=== PATIENT | female | born 1960 | race Caucasian/White ===

== ENCOUNTER 2018-04-20 09:28 | Emergency (ER) | payer BC, OTHER ==
[2018-04-20 10:31] VITALS: BP 120/98
[2018-04-20] MEDS ORDERED: Ketorolac INJ* 60 MG/2 ML VIAL IM ONE (11:29)
--- NOTE | 2018-04-20 11:40 | UC ---
Back Pain HPI - HPI Summary HPI Summary: 57-year-old woman comes in with a chief complaint of low back pain. Started 2 days ago while at work while she was twisting turning bending and lifting. Pain is in the low back and goes into the left buttock. It's worse with twisting turning or bending. No complaint of any weakness or numbness or difficulty controlling urine or bowels. Ibuprofen does help some with the pain. - History of Current Complaint Chief Complaint: UCBackPain Stated Complaint: WC BACK PAIN Time Seen by Provider: 04/20/18 11:20 Pain Intensity: 10 - Allergies/Home Medications Allergies/Adverse Reactions: Allergies Allergy/AdvReac Type Severity Reaction Status Date / Time No Known Allergies Allergy Verified 04/20/18 10:25 Home Medications: Home Medications Ibuprofen TAB* [Advil TAB*] 400 mg PO Q6H PRN 04/20/18 [History Confirmed ] PMH/Surg Hx/FS Hx/Imm Hx Previously Healthy: Yes - Surgical History Surgical History: Yes Surgery Procedure, Year, and Place: c/s x2 - Family History Known Family History: Positive: Non-Contributory - Social History Alcohol Use: Rare Substance Use Type: None Smoking Status (MU): Never Smoked Tobacco - Immunization History Most Recent Tetanus Shot: UTD Review of Systems All Other Systems Reviewed And Are Negative: Yes Constitutional: Positive: Negative Skin: Positive: Negative Eyes: Positive: Negative ENT: Positive: Negative Respiratory: Positive: Negative Cardiovascular: Positive: Negative Gastrointestinal: Positive: Negative Genitourinary: Positive: Negative Motor: Positive: Negative Neurovascular: Positive: Negative Musculoskeletal: Positive: Other: - SEE HPI Neurological: Positive: Negative Psychological: Positive: Negative Is Patient Immunocompromised?: No Physical Exam Triage Information Reviewed: Yes Appearance: Well-Appearing, Well-Nourished, Pain Distress - MILD AT REST Vital Signs: Initial Vital Signs Temp 99.9 F 04/20/18 10:26 Pulse 100 04/20/18 10:26 Resp 20 04/20/18 10:26 BP 120/98 04/20/18 10:26 Pulse Ox 100 04/20/18 10:26 Vital Signs Reviewed: Yes Eye Exam: Normal Eyes: Positive: Conjunctiva Clear Neck exam: Normal Neck: Positive: Supple Respiratory: Positive: No respiratory distress Musculoskeletal: Positive: Other: - Patient is tender to palpation in the lower lumbar area and into the left buttock and the sciatic distribution. Patient has full range of motion full-strength in the legs. No sensation deficits. Neurological Exam: Normal Neurological: Positive: Alert, Muscle Tone Normal Psychological Exam: Normal Psychological: Positive: Normal Response To Family, Age Appropriate Behavior Skin Exam: Normal Back Pain Course/Dx - Differential Dx/Diagnosis Provider Diagnosis: Low back pain Discharge - Sign-Out/Discharge Documenting (check all that apply): Patient Departure All imaging exams completed and their final reports reviewed: No Studies - Discharge Plan Condition: Stable Disposition: HOME Prescriptions: Cyclobenzaprine TAB* [Flexeril 10 MG TAB*] 10 mg PO TID PRN #15 tab MDD 3 PRN Reason: Pain traMADol TAB* [Ultram*] 50 mg PO Q6HR PRN #20 tab MDD 4 PRN Reason: Pain Patient Education Materials: Acute Low Back Pain (ED), Lower Back Exercises (ED ) Referrals: Jacquelyn Hallman MD [Primary Care Provider] - Additional Instructions: FOLLOW UP WITH YOUR DOCTOR IF NOT COMPLETELY IMPROVED. TAKE IBUPROFEN 600MG EVERY 6 HOURS NEEDED. GET RECHECKED FOR ANY WORSENING OF YOUR CONDITION; PAIN, WEAKNESS, NUMBNESS, DIFFICULTY CONTROLLING BOWEL OR BLADDER OR QUESTIONS OR CONCERNS. - Billing Disposition and Condition Condition: STABLE Disposition: Home
== END 2018-04-20 12:05 | disposition home or self-care (01) ==
LOC: UCEAST 09:28
DX: M54.5 Low back pain (principal)
CPT/HCPCS: 96372; 99211; G0463; J1885